=== PATIENT | female | born 1990 | race Caucasian/White ===

== ENCOUNTER 2023-05-16 16:05 | Emergency (ER) | payer BC, SELFPAY ==
[2023-05-16 16:51] VITALS: BP 115/76; PULSE 86; RESP 16; TEMP 36.6; O2SAT 98; BMI 38.4
[2023-05-16 19:26] VITALS: BP 114/64; PULSE 83; RESP 16; O2SAT 95
--- NOTE | 2023-05-16 19:32 | CTR_ITS ---
PROCEDURE INFORMATION: Exam: CT Abdomen And Pelvis With Contrast Exam date and time: 05/16/2023 8:23 PM Age: 32 years old Clinical indication: Abdominal pain; Localized; Right lower quadrant (rlq); Additional info: Rlq pain TECHNIQUE: Imaging protocol: Computed tomography of the abdomen and pelvis with contrast. Axial, coronal and sagittal reformatted images were created and reviewed. Radiation optimization: All CT scans at this facility use at least one of these dose optimization techniques: automated exposure control; mA and/or kV adjustment per patient size (includes targeted exams where dose is matched to clinical indication); or iterative reconstruction. Contrast material: OMNI 350; Contrast volume: 100 ml; Contrast route: INTRAVENOUS (IV); REPORTING DATA: Count of CT and Cardiac NM exams in prior 12 months: This patient has received 0 known CTs and 0 known cardiac nuclear medicine studies in the 12 months prior to the current study. COMPARISON: CR XR KUB [id number] 01/01/2017 11:20 AM RADIATION DOSE METRICS: Total DLP (mGy-cm): 899.6 FINDINGS: Tubes, catheters and devices: Intrauterine device in place. Liver: Unremarkable. Gallbladder and bile ducts: No radiodense gallstones. No biliary ductal dilatation. Pancreas: Unremarkable. Spleen: Unremarkable. Adrenal glands: Normal. No mass. Kidneys and ureters: 5 mm low-density right renal lesion, too small to characterize. Nonobstructing left renal calculus. No hydronephrosis. Stomach and bowel: No bowel wall thickening. No obstruction. No pneumatosis. Appendix: Normal. Intraperitoneal space: No free fluid. No organized fluid collection. No free air. Vasculature: Unremarkable. No aneurysm. Lymph nodes: Calcified mediastinal lymph nodes, consistent with prior granulomatous disease. Mildly prominent mesenteric lymph nodes, some of which are clustered along the right psoas musculature. Urinary bladder: Unremarkable as visualized. Reproductive: Unremarkable. Bones/joints: No acute osseous abnormality. Soft tissues: Tiny, fat containing umbilical hernia. CT/CT abdomen pelvis w con* [id number] IMPRESSION: 1. Mildly prominent mesenteric lymph nodes, some of which are clustered along the right psoas musculature. Findings are nonspecific in appearance but can be seen with mesenteric adenitis. 2. Additional findings, as above. COMMENTS: Consistent with the [employer]'s Incidental Findings Committee white paper (J Am Darshan Radiol 2018): Any incidental renal lesion less than 1 cm or classified as too small to characterize, or any incidental cystic renal lesion characterized as simple-appearing, is likely benign. No follow-up imaging is recommended for these lesions per consensus recommendations based on imaging criteria.
--- NOTE | 2023-05-16 19:38 | ED_ITS ---
HPI - Abdominal Pain General: Chief Complaint: Abdominal Pain Stated Complaint: Abd Pain, Fever Time Seen by Provider: 05/16/23 19:21 Source: patient Mode of arrival: ambulatory Limitations: no limitations History of Present Illness: 32-year-old female who states that she been having right-sided abdominal pain over the last 3 days along with nausea and diarrhea. States that today the pain did seem little worse in her right lower quadrant. No abdominal surgeries. She denies any worsening proving factors she rates her pain a 6 out of 10 currently Associated Symptoms: Reports diarrhea; Denies chills, dysuria and fever(s) Review of Systems Const: Denies: fever(s) or chills Eyes: Denies: eye discomfort ENMT: Denies: throat pain or dental pain Card: Denies: chest pain Resp: Denies: dyspnea GI: Reports: abdominal pain and diarrhea : Denies: dysuria Musc: Denies: neck pain or back pain Skin/Breast: Denies: rash Neuro: Denies: headache(s) PFSH ED PFSH: Social History Smoking and tobacco status: never smoked Alcohol intake: current Alcohol intake frequency: few times a month Substance/Drug Use: never Current occupation: [employer] - L[employer]D Physical Exam Const: COMMON NORMALS: no acute distress, patient oriented x3 and healthy appearing HENMT: COMMON NORMALS: normocephalic and atraumatic HEAD & SCALP: normocephalic and atraumatic Neck/C-Spine: COMMON NORMALS: full ROM and supple Chest: COMMONS NORMALS: normal inspection of the chest and normal palpation of entire chest wall Resp: COMMON NORMALS: normal respiratory effort, No retractions, No use of accessory muscles and clear to auscultation bilaterally AUSCULTATION: clear to auscultation bilaterally Cardio: COMMON NORMALS: regular rate, regular rhythm and No murmurs present (Cardio) RATE: regular rate RHYTHM: regular rhythm GI: COMMON NORMALS: Normal to inspection, nondistended, normoactive bowel sounds present, Soft to palpation and no masses PALPATION: Yes Soft to palpation and Yes Tenderness to palpation present (GI) Details: RLQ Extremity: COMMON NORMALS: normal to inspection and full ROM Neuro: COMMON NORMALS: patient oriented x3, moves all extremities and no focal motor deficits Psych: COMMON NORMALS: mental status grossly normal, Normal thought process present and cooperative THOUGHT PROCESS: Normal thought process present Skin: COMMON NORMALS: no rashes or lesions noted and no wounds GENERAL SKIN EXAM: no rashes or lesions noted Course Vital Signs: Vital signs: Vital Signs Temperature 97.9 F 05/16/23 16:51 Pulse Rate 82 05/16/23 21:00 Respiratory Rate 15 05/16/23 21:00 Blood Pressure 142/69 05/16/23 21:00 Pulse Oximetry 93 05/16/23 21:00 Oxygen Delivery Me thod Room Air 05/16/23 21:00 MDM - Abdominal Pain Medical Decision Making Patient presents with abdominal pain CT shows mesenteric adenitis likely causing her pain blood work and CT is otherwise normal she is stable for discharge she is to follow-up with her PCP and return if worsening she understands agrees to plan. Lab Data 05/16/23 19:24 05/16/23 19:24 Labs/Radiology: Radiology Impressions Abdomen/Pelvis CT 05/16/23 19:32 IMPRESSION: 1. Mildly prominent mesenteric lymph nodes, some of which are clustered along the right psoas musculature. Findings are nonspecific in appearance but can be seen with mesenteric adenitis. 2. Additional findings, as above. COMMENTS: Consistent with the [employer]'s Incidental Findings Committee white paper (J Am Darshan Radiol 2018): Any incidental renal lesion less than 1 cm or classified as too small to characterize, or any incidental cystic renal lesion characterized as simple-appearing, is likely benign. No follow-up imaging is recommended for these lesions per consensus recommendations based on imaging criteria. Laboratory Results WBC 9.3 10^3/uL (4.0-10.0) 05/16/23 19:24 RBC 4.97 10^6/uL (4.1-5.3) 05/16/23 19:24 Hgb 12.1 g/dL (11.5-15.3) 05/16/23 19:24 Hct 39.5 % (37.0-47.0) 05/16/23 19:24 MCV 79.5 fl (81-99) L 05/16/23 19:24 MCH 24.3 pg (28.0-34.0) L 05/16/23 19:24 MCHC 30.6 g/dL (30.0-36.0) 05/16/23 19:24 RDW 14.6 % (12.1-15.1) 05/16/23 19:24 Plt Count 385 10^3/cmm (130-400) 05/16/23 19:24 MPV 9.8 fL (7.4-10.4) 05/16/23 19:24 Neut % (Auto) 49.9 % 05/16/23 19:24 Lymph % (Auto) 40.2 % 05/16/23 19:24 [place] % (Auto) 6.6 % 05/16/23 19:24 Eos % (Auto) 2.5 % 05/16/23 19:24 Baso % (Auto) 0.5 % 05/16/23 19: Neut # (Auto) 4.65 10^3/uL (1.8-7.7) 05/16/23 19: Lymph # (Auto) 3.8 10^3/uL (0.8-4.8) 05/16/23 19:24 [place] # (Auto) 0.6 10^3/uL (0.2-0.9) 05/16/23 19:24 Eos # (Auto) 0.2 10^3/uL (0.0-0.8) 05/16/23 19: Baso # (Auto) 0.1 10^3/uL (0.0-0.1) 05/16/23 19:24 Nucleated RBC % (auto) 0 % 05/16/23 19: Nucleated RBCs # 0.0 /100WBC 05/16/23 19:24 Sodium 134 mmol/L (136-145) L 05/16/23 19:24 Potassium 4.7 mmol/L (3.5-5.1) 05/16/23 19:24 Chloride 99 mmol/L (98-107) 05/16/23 19:24 Carbon Dioxide 25 mmol/L (22-29) 05/16/23 19:24 Anion Gap 14.7 (5-19) 05/16/23 19:24 BUN 13 mg/dL (6-20) 05/16/23 19:24 Creatinine 0.7 mg/dL (0.5-0.9) 05/16/23 19:24 GFR Calculation 97.0 mL/min (90-130) 05/16/23 19:24 Glucose 87 mg/dL (65-115) 05/16/23 19:24 Calculated Osmolality 277 mOsm/kg (285-295) L 05/16/23 19:24 Calcium 9.1 mg/dL (8.5-10.5) 05/16/23 19:24 Magnesium 2.2 mg/dL (1.7-2.3) 05/16/23 19:24 Total Bilirubin 0.2 mg/dL (0.15-1.2) 05/16/23 19:24 AST 35 U/L (0-32) H 05/16/23 19:24 ALT 22 U/L (0-33) 05/16/23 19:24 Alkaline Phosphatase 89 U/L (35-105) 05/16/23 19:24 Total Protein 7.6 g/dL (6.6-8.7) 05/16/23 19:24 Albumin 4.4 g/dL (3.5-5.2) 05/16/23 19:24 Globulin 3.2 g/dL (1.3-4.6) 05/16/23 19:24 Lipase 25 U/L (13-60) 05/16/23 19:24 Ser , Semi-Qnt 1.00 mIU/mL 05/16/23 19:24 Discharge Plan Discharge Patient Disposition: Home Clinical Impression: Acute mesenteric adenitis Condition: Stable Prescriptions: New hydrocodone-acetaminophen 5-325 mg tablet 1 tab PO Q6H PRN (Reason: pain) Qty: 14 0RF ondansetron 4 mg tablet,disintegrating 4 mg PO Q6H PRN (Reason: nausea and vomiting) Qty: 14 0RF No Action montelukast [Singulair] 10 mg tablet 10 mg PO DAILY Qty: 90 3RF levocetirizine [Xyzal] 5 mg tablet 5 mg PO DAILY Qty: 90 3RF citalopram 20 mg tablet 20 mg PO DAILY Qty: 90 3RF Discharge Orders: Discharge ED (Routine); Ordered 05/16/23 Ordered By: Arsenio Thayer Referrals: Phillip Gutiérrez MD [Primary Care Provider] - Discharge Diet: Advance as tolerated Discharge Activity: Resume usual activity Patient Instructions: Mesenteric Adenitis (ED), Opioid Safety Coding Level of Care Code ED Gear Generator Set Up Operator for Aniya Ugarte
[2023-05-16] MEDS: ondansetron 2 mg/ML SDV 2 mL 4 MG IVP (19:39)
[2023-05-16] MEDS: sodium chloride 0.9% 1,000 ML 999 ML IV (19:40)
--- NOTE | 2023-05-16 19:43 | PC.NURSE ---
pt refused morphine at this time. pt states that seems a little excessive, if my pain gets worse I will let you know. this nurse returned morphine to Pyxis & notified provider.
[2023-05-16 19:46] LABS: Basophils # 0.1 10^3/uL (0.0-0.1); Basophils % 0.5 %; Eosinophils # 0.2 10^3/uL (0.0-0.8); Eosinophils % 2.5 %; Hematocrit 39.5 % (37.0-47.0); Hemoglobin 12.1 g/dL (11.5-15.3); Lymphocytes # 3.8 10^3/uL (0.8-4.8); Lymphocytes % 40.2 %; Mean Corpuscular HGB Conc 30.6 g/dL (30.0-36.0); Mean Corpuscular Hemoglobin 24.3 pg (28.0-34.0); Mean Corpuscular Volume 79.5 fl (81-99); Mean Platelet Volume 9.8 fL (7.4-10.4); Monocytes # 0.6 10^3/uL (0.2-0.9); Monocytes % 6.6 %; Neutrophils # 4.65 10^3/uL (1.8-7.7); Neutrophils % 49.9 %; Nucleated Red Blood Cells % 0 %; Platelet Count 385 10^3/cmm (130-400); Red Blood Count 4.97 10^6/uL (4.1-5.3); Red Cell Distribution Width 14.6 % (12.1-15.1); White Blood Count 9.3 10^3/uL (4.0-10.0)
[2023-05-16 19:56] LABS: Albumin Level 4.4 g/dL (3.5-5.2); Alkaline Phosphatase 89 U/L (35-105); Blood Urea Nitrogen 13 mg/dL (6-20); Calcium 9.1 mg/dL (8.5-10.5); Carbon Dioxide 25 mmol/L (22-29); Chloride 99 mmol/L (98-107); Globulin 3.2 g/dL (1.3-4.6); Glucose 87 mg/dL (65-115); Lipase 25 U/L (13-60); Magnesium 2.2 mg/dL (1.7-2.3); Osmolality Calculated 277 mOsm/kg (285-295); Sodium 134 mmol/L (136-145); Total Bilirubin 0.2 mg/dL (0.15-1.2); Total Protein 7.6 g/dL (6.6-8.7)
[2023-05-16 19:58] LABS: Alanine Aminotransferase 22 U/L (0-33); Anion Gap 14.7 (5-19); Aspartate Amino Transferase 35 U/L (0-32); Potassium 4.7 mmol/L (3.5-5.1)
[2023-05-16 21:00] VITALS: BP 142/69; PULSE 82; RESP 15; O2SAT 93
[2023-05-16 21:20] VITALS: BP 142/69; PULSE 89; RESP 14; O2SAT 96
== END 2023-05-16 21:29 | disposition home or self-care (01) ==
PROVIDERS: Emergency Medicine; Emergency Provider Emergency Medicine; PCP Family Medicine
DX: I88.0 Nonspecific mesenteric lymphadenitis (principal); R11.0 Nausea; R19.7 Diarrhea, unspecified
CPT/HCPCS: 74177; 80053; 83690; 83735; 84702; 85025; 96361; 96374; 99285; J2405; J7030; Q9967